=== PATIENT | female | born 1995 ===

== ENCOUNTER 2017-07-13 16:00 | Emergency (ER) | payer OTHER ==
[2017-07-13 16:40] LABS: BASOPHILS % (AUTO) 0 % (0-3); EOSINOPHILS % (AUTO) 0 % (0-9); HEMATOCRIT 35 % (35-47); MEAN CORPUSCULAR HGB CONC 34.2 gm/dl (32.0-36.0); MONOCYTES % (AUTO) 4.5 % (0-12); NEUTROPHILS % (AUTO) 77.6 % (37-80)
[2017-07-13 16:41] LABS: MEAN CORPUSCULAR VOLUME 80 fL (81-99)
[2017-07-13 16:54] LABS: ALBUMIN 2.3 gm/dl (3.4-5.0); ALT 18 IU/L (14-63); CALCIUM 7.6 mg/dl (8.5-10.1); GLOM FILT RATE 105 mL/min (>60); SODIUM 139 mMol/L (136-145)
[2017-07-13 16:57] LABS: POTASSIUM 2.7 mMol/L (3.5-5.1)
[2017-07-13 17:00] LABS: APPEARANCE,URINE Clear; BILIRUBIN,URINE 1+ (NEGATIVE); COLOR,URINE Yellow; GLUCOSE, URINE (UA) NEGATIVE (NEGATIVE); KETONES,URINE 2+ (NEGATIVE); LEUKOCYTE ESTERASE ,URINE NEGATIVE (NEGATIVE); NITRATE,URINE NEGATIVE (NEGATIVE); OCCULT BLOOD,URINE NEGATIVE (NEG-TRACE)
[2017-07-13 17:04] VITALS: RESP 20
[2017-07-13 17:08] LABS: ICTOTEST,URINE NEGATIVE (NEGATIVE); RBC,URINE 0-2 (0-3AV/HPF)
[2017-07-13 17:09] LABS: AMPHETAMINES POSITIVE (NEGATIVE); METHADONE NEGATIVE (NEGATIVE); OPIATES(OP13) NEGATIVE (NEGATIVE); OXYCODONE(OXY) NEGATIVE (NEGATIVE); PROPOXYPHENE(PPX) NEGATIVE (NEGATIVE); TRICYCLIC ANTIDEPRESSANTS NEGATIVE (NEGATIVE)
[2017-07-13] MEDS ORDERED: POTASSIUM CHLORIDE 2 MEQ/ML SOL IV ONE (17:28)
[2017-07-13] MEDS ORDERED: LIDOCAINE HCL 1% MPF SOL ONE (17:33)
[2017-07-13] MEDS ORDERED: POTASSIUM CHLORIDE 2 MEQ/ML SOL IV SCH (17:35)
[2017-07-13 17:38] LABS: MAGNESIUM 1.4 mg/dl (1.8-2.4); URIC ACID 6.1 mg/dl (2.6-7.2)
[2017-07-13] MEDS ORDERED: SODIUM CHLORIDE 0.9% FLUSH 10 ML SOL IV PRN (17:39)
[2017-07-13] MEDS ORDERED: CALCIUM GLUCONATE 10% 100 MG/ML SOL IV PRN (17:43)
[2017-07-13] MEDS ORDERED: MAGNESIUM SULFATE 20GM(PREMIX) 20 GM/500 ML SOL IV PRN (17:43)
[2017-07-13] MEDS ORDERED: MAGNESIUM SULFATE 5 GM/10 ML SOL IV PRN (17:43)
[2017-07-13] MEDS ORDERED: MAGNESIUM SULFATE 5 GM/10 ML SOL ONE (17:52)
[2017-07-13] MEDS ORDERED: MAGNESIUM SULFATE 20GM(PREMIX) 20 GM/500 ML SOL IV ONE (17:57)
[2017-07-13] MEDS ORDERED: CALCIUM GLUCONATE 10% 100 MG/ML SOL IV ONE (18:04)
[2017-07-13 18:34] VITALS: TEMP 98.7; O2SAT 98
[2017-07-13 19:04] VITALS: BP 148/98; PULSE 85
== END 2017-07-13 18:58 | disposition short-term general hospital (02) ==
LOC: ED 16:00
DX: O14.93 Unspecified pre-eclampsia, third trimester (principal); O99.323 Drug use complicating pregnancy, third trimester; F12.10 Cannabis abuse, uncomplicated; O99.333 Smoking (tobacco) complicating pregnancy, third trimester; Z3A.35 35 weeks gestation of pregnancy
CPT/HCPCS: 36415; 59025; 80053; 80305; 80307; 81001; 83735; 84550; 85025; 93005; 99285; J0610; J3475; J3480; J2001